=== PATIENT | male | born 1995 | race American Indian/Alaskan Native ===

== ENCOUNTER 2017-01-29 00:14 | Emergency (ER) | payer SELFPAY ==
[2017-01-29] MEDS ORDERED: BOOSTRIX IM ONE (04:17)
--- NOTE | 2017-01-29 04:17 | Emergency Department Report ---
Upper Extremity - HPI Chief Complaint: Back Pain/Injury Stated Complaint: RIGHT FINGER LAC/BACK MUSCLE PAIN Time Seen by Provider: 01/29/17 03:58 Upper Extremity: Right Ring Finger (distal small laceration to tuft ) Occurred When: 2 Days Severity: mild Symptoms: Yes Swelling, Yes Laceration or Abrasion (small semicircular close the laceration to distal tuft left distal ring finger), No Pain with Movement, No Deformity, No Limited Range of Movement, No Numbness, No Weakness, No Bruising/Ecchymosis Other History: 1-year-old male presents with complaint ofA/P: Laceration. 1- sutures to be removed in _ days. 2-tetanus updated. 3-Motrin when necessary, triple antibiotic ointment. 4- and advised to return to the ED for any fevers chills pus drainage erythema at site of laceration. 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 Patient is unsure of tetanus status. He denies any pus drainage small visible semicircular flap laceration closed at distal right ring finger ED Review of Systems ROS: Stated complaint: RIGHT FINGER LAC/BACK MUSCLE PAIN Other details as noted in HPI Constitutional: denies: chills, fever Eyes: denies: eye pain, eye discharge, vision change ENT: denies: ear pain, throat pain Respiratory: denies: cough, shortness of breath, wheezing Cardiovascular: denies: chest pain, palpitations Endocrine: no symptoms reported Gastrointestinal: denies: abdominal pain, nausea, diarrhea Genitourinary: denies: urgency, dysuria Musculoskeletal: denies: back pain, joint swelling, arthralgia Skin: denies: rash, lesions Neurological: denies: headache, weakness, paresthesias Psychiatric: denies: anxiety, depression Hematological/Lymphatic: denies: easy bleeding, easy bruising ED Past Medical Hx - Past Medical History Previous Medical History?: No - Surgical History Past Surgical History?: No - Social History Smoking Status: Current Some Day Smoker - Medications Home Medications: Home Medications Medication Instructions Recorded Confirmed Last Taken Type Cephalexin [Keflex] 500 mg PO Q12HR #10 cap 01/29/17 Unknown Rx Naproxen [Naprosyn TAB] 500 mg PO BID PRN #20 tablet 01/29/17 Unknown Rx Upper Extremity Exam - Exam General: Vital signs noted. No distress. Alert and acting appropriately. Head and Torso: No HEENT Abnormality, No Neck Tenderness, No Chest/Lungs Abnormality, No Abdominal Tenderness, No Back Tenderness Shoulder Exam: Yes Normal Range of Motion in Shoulder, No Shoulder Tenderness, No Clavicle Tenderness, No Shoulder Deformity, No AC Joint Tenderness Arm Exam: No Arm/Humerus Tenderness, No Arm Deformity Elbow: No Elbow Tenderness, No Normal Range of Motion in Elbow, No Elbow Deformity Forearm: No Forearm Tenderness, No Forearm Deformity, No Pain with Pronation, No Pain with Supination Wrist: Yes Normal ROM in Wrist, No Wrist Tenderness, No Wrist Deformity, No Snuffbox Tenderness, No Pain with Axial Thumb Compression Hand: Yes Normal ROM in Digit(s), No Hand Tenderness, No Hand Deformity, No Digit Tenderness, No Digit(s) Deformity, No Tendon Dysfunction CMS Exam: Yes Broken Skin (small semicircular 0.5 cm laceration right distal finger), Yes Normal Distal Pulses, Yes Normal Capillary Refill, No Normal Distal Sensation Hand L/R Front: 1 - Small closed laceration here visible semicircular flap no open tissue ED Course Vital Signs 01/29/17 00:38 Temperature 98.1 F Pulse Rate 65 Respiratory 18 Rate Blood Pressure 128/97 O2 Sat by Pulse 98 Oximetry ED Medical Decision Making - Medical Decision Making A/P: Small distal fingertip laceration 1-occurred nearly 48 hours ago 2-tetanus updated today 3-sealed with Dermabond 4- Keflex 500 mg twice a day 5 days 5- naproxen 6-I advised patient to return to the ED if he experiences any pus drainage or erythema at distal fingertip Critical care attestation.: If time is entered above; I have spent that time in minutes in the direct care of this critically ill patient, excluding procedure time. ED Disposition Clinical Impression: Finger laceration Qualifiers: Encounter type: initial encounter Finger: ring finger Damage to nail status: without damage Foreign body presence: without foreign body Laterality: right Qualified Code(s): S61.214A - Laceration without foreign body of right ring finger without damage to nail, initial encounter Disposition: TO HOME OR SELFCARE Is pt being admited?: No Does the pt Need Aspirin: No Condition: Stable Instructions: Finger Laceration (ED), Acute Wound Care (ED), Skin Adhesive Care (ED) Prescriptions: Cephalexin [Keflex] 500 mg PO Q12HR #10 cap Naproxen [Naprosyn TAB] 500 mg PO BID PRN #20 tablet PRN Reason: Pain Referrals: [facility] [Outside] - 3-5 Days Forms: Work/School Release Form(ED) Time of Disposition: 04:17
[2017-01-29 05:04] VITALS: BP 118/68
== END 2017-01-29 04:40 | disposition home or self-care (01) ==
LOC: ED 00:14
DX: S61.214A Laceration without foreign body of right ring finger without damage to nail, initial encounter (principal); Z72.0 Tobacco use; W45.8XXA Other foreign body or object entering through skin, initial encounter; Y93.89 Activity, other specified; Y99.9 Unspecified external cause status; Y92.89 Other specified places as the place of occurrence of the external cause
CPT/HCPCS: 90471; 90715

== ENCOUNTER 2017-08-19 13:58 | Emergency (ER) | payer SELFPAY ==
[2017-08-19 14:40] VITALS: BP 123/75
== END 2017-08-19 17:30 | disposition left against medical advice (07) ==
LOC: ED 13:58
DX: Z53.21 Procedure and treatment not carried out due to patient leaving prior to being seen by health care provider (principal)